=== PATIENT | female | born 1985 | race Caucasian/White ===

== ENCOUNTER → 2019-04-25 16:14 | Outpatient (CLI) | payer OTHER, SELFPAY ==
--- NOTE | 2019-04-25 | DI.US.S_ITS ---
PROCEDURE: US OB <= 14 WEEKS FETUS INDICATIONS: SIZE AND DATING OUTSIDE/PRIOR DATING DATA: Last menstrual period (LMP): 03/04/2019. LMP-based estimated date of delivery ([place]): 12/09/2019. First dating scan (date and location): 04/25/2019. Estimated date of delivery ([place]) from first dating scan: 12/08/2019. TECHNIQUE: Real-time scanning was performed of the fetus and maternal pelvic organs, with image documentation. Endovaginal scanning was also performed to better visualize the fetus and maternal ovaries. COMPARISON: None. FINDINGS: Embryo: Uterus measures 11.8 x 5.8 x 7 cm. There is an intrauterine gestational sac centered in the uterus. A normal-appearing crown-rump length measures 1.3 cm with an estimated gestational age of 7 weeks 4/7 days. A yolk sac is present. A heartbeat measures 153 bpm. Measurement variability in dating: +/- 4 weeks by LMP, +/- 7 days by mean sac diameter (use before 6 weeks gestation if crown-rump length not able to be measured), +/- 5 days by crown-rump length (up to 8 weeks 6 days gestation), +/- 7 days by crown-rump length (up to 13 weeks 6 days gestation). Maternal organs: Ovaries are not well seen. IMPRESSION: 1. Aldrich living intrauterine at 7 weeks 4/7 days based on today's CRL. heartbeat is present. 2. Maternal ovaries are not well seen. Dictated by: Poncho Elizalde M.D. on 04/25/2019 at 17:54 Approved by: Poncho Elizalde M.D. on 04/25/2019 at 17:58
== END ==
PROVIDERS: PCP Family Medicine; Visit Provider Family Medicine
DX: Z34.91 Encounter for supervision of normal pregnancy, unspecified, first trimester (principal); Z3A.01 Less than 8 weeks gestation of pregnancy
CPT/HCPCS: 76801

== ENCOUNTER → 2019-07-20 15:35 | Outpatient (CLI) | payer OTHER, SELFPAY ==
--- NOTE | 2019-07-20 | DI.US.S_ITS ---
PROCEDURE: US OB >= 14 WEEKS FETUS INDICATIONS: ANATOMY SCAN OUTSIDE/PRIOR DATING DATA: Last menstrual period (LMP): 03/04/2019. LMP-based estimated date of delivery ([place]): 12/09/2019. First dating scan (date and location): 04/25/2019. Estimated date of delivery ([place]) from first dating scan: 12/08/2019 TECHNIQUE: Real-time scanning was performed of the fetus, with image documentation and biometric measurements. COMPARISON: [facility], OB <= 14 WEEKS FETUS, 04/25/2019, 16:31. FINDINGS: General: A single living intrauterine gestation is present. Presentation: Vertex Placenta: Placental position is posterior, without previa. Amniotic fluid index: 13.4 cm, normal range is 5-24 cm. heart rate: 157 beats per minute. Maternal cervical canal: 3.4 cm long. Normal lower limit is 2.5 cm. biometrics: Biparietal diameter: 20 weeks 4 days Head circumference: 19 weeks 6 days Abdominal circumference: 20 weeks 1 day Femur length: 19 weeks 5 days Estimated gestational age from initial scan: 19 weeks 6 days Composite gestational age from present scan: 20 weeks 1 day Estimated weight and percentile: 321 g; 49 percentile Measurement variability for biometric dating: +/- 7 days from 14 weeks to 15 weeks 6 days gestation, +/- 10 days from 16 weeks to 21 weeks 6 days gestation, +/- 2 weeks from 22 weeks to 27 weeks 6 days gestation, +/- 3 weeks for 28 weeks gestation or later. weight reference: 4500 g or EFW >90/95% is considered macrosomia or large for gestational age. EFW <10% is small for gestational age. EFW 5% or less is considered intra-uterine growth restriction. Anatomic survey: Neuro: Ventricles are non-dilated at less than 10 mm. Cisterna magna is normal at 3-11 mm. Cerebellum is normal in size and morphology. Nuchal skin fold: Normal at less than 6 mm between 14-21 weeks gestational age. Face: Nose and lips, facial profile are normal. Spine: No evidence for spina bifida. Heart: 4-chambered heart is present, with normal ventricular outflow tracts. Diaphragm: Diaphragm is intact. Stomach: Left-sided stomach is present. Kidneys: No hydronephrosis. Normal is less than 5 mm in 2nd trimester, less than 7 mm in 3rd trimester. Cord: 3-vessel cord has orthotopic insertion. Bladder: Normal in size. Extremities: All 4 extremities identified. IMPRESSION: 1. Aldrich living intrauterine at 20 weeks 1/7 days based on today's ultrasound. This is concordant with the external assessment. There is expected interval growth. 2. Normal placenta and amniotic fluid. 3. Normal and complete anatomic survey. Dictated by: Refugio MCDERMOTT Interpreted: Poncho Elizalde MD on 07/20/2019 at 16:44 Approved by: Poncho Elizalde M.D. on 07/20/2019 at 17:22
== END ==
PROVIDERS: PCP Family Medicine; Visit Provider Family Medicine
DX: Z36.89 Encounter for other specified antenatal screening (principal); Z3A.20 20 weeks gestation of pregnancy
CPT/HCPCS: 76811

== ENCOUNTER → 2019-10-31 15:46 | Outpatient (CLI) | payer OTHER, SELFPAY ==
--- NOTE | 2019-10-31 | DI.US.S_ITS ---
PROCEDURE: US OB FOLLOW UP INDICATIONS: SIZE LESS THAN DATES OUTSIDE/PRIOR DATING DATA: Last menstrual period (LMP): 03/04/2019 LMP-based estimated date of delivery ([place]): 12/09/2019. First dating scan (date and location): 04/25/2019, [facility]. Estimated date of delivery ([place]) from first dating scan: 12/08/2019. TECHNIQUE: Real-time scanning was performed of the fetus, with image documentation and biometric measurements. Endovaginal scanning: Not performed COMPARISON: [facility], , OB >= 14 WEEKS FETUS, 07/20/2019, 15:49. FINDINGS: General: A single living intrauterine gestation is present. Presentation: Vertex. Placenta: Placental position is posterior fundal, without previa. Amniotic fluid index: 11.3 cm, normal range is 5-24 cm. heart rate: 145 beats per minute. Maternal cervical canal: 3.1 cm long. Normal lower limit is 2.5 cm. biometrics: Biparietal diameter: 8.8 cm. 35 weeks 5 days. Head circumference: 31.5 cm. 35 weeks 3 days. Abdominal circumference: 29.5 cm. 33 weeks 3 days. Femur length: 6.8 cm. 35 weeks 0 days. Estimated gestational age from initial scan: 34 weeks 4 days Composite gestational age from present scan: 34 weeks 4 days Estimated weight and percentile: 2400 g, 37th percentile. Measurement variability for biometric dating: +/- 7 days from 14 weeks to 15 weeks 6 days gestation, +/- 10 days from 16 weeks to 21 weeks 6 days gestation, +/- 2 weeks from 22 weeks to 27 weeks 6 days gestation, +/- 3 weeks for 28 weeks gestation or later. weight reference: 4500 g or EFW >90/95% is considered macrosomia or large for gestational age. EFW <10% is small for gestational age. EFW 5% or less is considered intra-uterine growth restriction. Other: Heart, chest, urinary bladder are grossly unremarkable. IMPRESSION: 1. Aldrich living intrauterine at 34 weeks 4/7 days based on today's ultrasound. This is concordant with the prior ultrasound. There is interval growth. Estimated weight 37th percentile. 2. Normal placenta and amniotic fluid. Dictated by: Poncho Elizalde M.D. on 10/31/2019 at 17:10 Approved by: Poncho Elizalde M.D. on 10/31/2019 at 17:16
== END ==
PROVIDERS: PCP Family Medicine; Referring Provider Family Medicine; Visit Provider Family Medicine
DX: Z36.4 Encounter for antenatal screening for fetal growth retardation (principal); Z3A.34 34 weeks gestation of pregnancy
CPT/HCPCS: 76816

== ENCOUNTER → 2019-11-10 11:30 | Outpatient (ROUT) | payer OTHER, SELFPAY | PROVIDERS: PCP Family Medicine; Visit Provider Family Medicine | DX: Z34.90 Encounter for supervision of normal pregnancy, unspecified, unspecified trimester (principal) | CPT/HCPCS: 87081 ==

== ENCOUNTER → 2019-11-25 14:10 | Outpatient (CLI) | payer OTHER, SELFPAY ==
--- NOTE | 2019-11-25 | DI.US.S_ITS ---
PROCEDURE: US OB LIMITED INDICATIONS: SIZE LESS THAN DATES OUTSIDE/PRIOR DATING DATA: Last menstrual period (LMP): 03/04/19. LMP-based estimated date of delivery ([place]): 12/09/19. First dating scan (date and location): 04/25/19. Estimated date of delivery ([place]) from first dating scan: 12/08/19. TECHNIQUE: Real-time scanning was performed of the fetus, with image documentation and biometric measurements. Endovaginal scanning: Not needed COMPARISON: [facility], 01/09/2017, 17:09. [facility], 12/08/2016, 16:28. FINDINGS: General: A single living intrauterine gestation is present. Presentation: Cephalic. biometrics: Biparietal diameter: 9.3 cm, 38 weeks 0 days Head circumference: 33.0 cm, 37 weeks 5 days Abdominal circumference: 34 cm, 37 weeks 3 days Femur length: 6.8 cm, 36 weeks 0 days Estimated gestational age from initial scan: 38 weeks 1 day Composite gestational age from present scan: 37 weeks 0 days Estimated weight and percentile: 3073 g, 32nd percentile Measurement variability for biometric dating: +/- 7 days from 14 weeks to 15 weeks 6 days gestation, +/- 10 days from 16 weeks to 21 weeks 6 days gestation, +/- 2 weeks from 22 weeks to 27 weeks 6 days gestation, +/- 3 weeks for 28 weeks gestation or later. weight reference: 4500 g or EFW >90/95% is considered macrosomia or large for gestational age. EFW <10% is small for gestational age. EFW 5% or less is considered intra-uterine growth restriction. Other: Not applicable. IMPRESSION: Appropriate interval growth, no anomaly found. Delivery date is projected to be centered on 12/08/19. Dictated by: Serge Wylie M.D. on 11/25/2019 at 16:18 Approved by: Serge Wylie M.D. on 11/25/2019 at 16:22
== END ==
PROVIDERS: PCP Family Medicine; Referring Provider Family Medicine; Visit Provider Family Medicine
DX: Z36.4 Encounter for antenatal screening for fetal growth retardation (principal); Z3A.37 37 weeks gestation of pregnancy
CPT/HCPCS: 76815

== ENCOUNTER 2019-12-12 21:41 | Inpatient (IN) | payer OTHER, SELFPAY ==
[2019-12-12 23:18] LABS: Add Manual Diff / Slide Review NO; Basophils Absolute Auto 0 /uL (0-100); Basophils Percent Auto 0.3 % (0-2); Eosinophils Absolute Auto 0 /uL (0-450); Eosinophils Percent Auto 0.3 % (2-4); Hematocrit 39.3 % (36-46); Hemoglobin 13.3 g/dL (12.0-16.0); Lymphocytes Absolute Auto 3900 /uL (1100-4500); Lymphocytes Percent Auto 33.7 % (25-40); Mean Corpuscular HGB Conc 33.8 % (30-36); Mean Corpuscular Volume 91.8 fL (80-100); Monocytes Absolute Auto 1100 /uL (0-900); Monocytes Percent Auto 9.4 % (3-14); Neutrophils Absolute Auto 6500 /uL (1500-7000); Neutrophils Percent Auto 56.3 % (50-75); Platelet Count 256 X10^3/uL (150-400); Red Blood Cell Count 4.28 X10^6/uL (4.0-5.2); Red Cell Distribution Width 13.9 % (11.6-14.8); White Blood Cell Count 11.5 X10^3/uL (4.5-11.0)
[2019-12-12 23:38] VITALS: BP 129/88
--- NOTE | 2019-12-13 01:07 | P.PCNOB_ITS ---
Labor & Delivery Delivery date: 12/13/19 Intrapartal events: None Cervical ripening method: none Induction method: none Delivery augmentation: rupture of membranes Delivery monitor: external FHT and external uterine Route of delivery: Episiotomy description: None L&D Laceration Description: Perineal - 2nd Degree Delivery repair: chromic Estimated blood loss (mL): 350 Anesthesia type: None Complications: none Narrative: Identifying data this is a 34-year-old who is 40 and 4 7th weeks estimated gestational age based on LMP and 7 week ultrasound which gives an EDC of 12/09/2019. Patient had an unremarkable and presented to labor and delivery in active labor. Her labor started at 5:00 p.m. on the day of admission. She is GBS negative, she declined flu shot but had a Tdap. She is O-positive, rubella immune. Her glucose tolerance test was normal. Stage I lasted 6 hours and 55 minutes Patient presented to labor and delivery in active labor and was found to be 6 cm dilated.. Her contractions started 1700 on the date of delivery. They increased in frequency and were quite significant every 3-5 minutes when she arrived to Labor and delivery. She did have bloody show and lost her mucus plug yesterday but did not have any leakage of fluid. She was handling the contractions very well and was progressing fairly quickly. She started involuntarily pushing at about 12/15/2048 and artificial rupture membranes was performed at this time but we were unable to assess the fluid. There was no large amount of mucus bloody show at that time but no obvious fluid. Patient was noted to be complete at 11:55 p.m.. External heart monitor was used throughout this stage and baseline was in the 140s with accelerations to 170s and moderate variability and occasional variable deceleration. These were very brief. Overall category 1 tracing. Patient had some coupling. But as she progressed to complete contractions became more regular at 3 minutes apart. Patient at 1 point said she might 1 epidural but then decided against this and handled to the Pain excellently. Stage II lasted 21 minutes Patient was able to put on hands and knees and did an excellent job. Baby was and patient was placed on her side. The patient was allows stretching of the perineum with the head as the head was . The head was delivered occiput anterior right. Once the head was delivered patient stop pushing and no cord was noted. The anterior shoulder and in the posterior shoulder were easily delivered and baby was placed on mom's chest. Baby was vigorous at delivery. Apgars were 9 at 1 minute and 9 at 5 minutes. Weight is still pending. External tocometer heart monitor were used throughout this stage. Baseline heart rate was in the 140s with moderate variability with accelerations at times with pushing occasional variable deceleration occasional rise in heart rate to 170s but then quickly would return to 140s. Overall reassuring strip c ategory 1 tracing. Stage III lasted 8 minutes Normal spontaneous vaginal delivery of an intact mildly calcified placenta with a central cord insertion. Three-vessel cord. 350 cc of blood loss. Ten milliunits of Pitocin was given at the time of delivery of the placenta. The was a very superficial periurethral laceration and a very a small mild second- degree perineal laceration. At the time of this dictation both mom and baby are in stable condition. Plan for aftercare: routine clear fluid likely GBS negative O positive
--- NOTE | 2019-12-13 01:21 | PM.OBHP.1 ---
OB HPI History of Present Condition Chief complaint: Narrative: Caroline Stallworth is a 34 year old female who presents to Labor and delivery with complaints of spontaneous onset of uterine contractions. She is a at 40 and 4 7 weeks estimated gestational age based on the EDC of 12/09/2019 based on a 7 week ultrasound and a known LMP. She had an unremarkable . She lost her mucus plug yesterday and has had some bloody show today. Her contractions started at 5:00 p.m. on the date of admission been progressively increased. She denies leakage of fluid. She was found to be 6 cm dilated on presentation. care begun early on and uncomplicated Sequential screen and cell free DNA normal Blood pressure was stable 100-110 over 60 to 70s. Weight gain of 25 lb. Serology O positive rubella immune antibody screen negative. Syphilis hep B hep C negative no anemia. Glucose tolerance test 124 status post Tdap. Declined flu shot. GC chlamydia negative group B beta strep negative Past medical history: 1. 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 Gluten sensitivity 3. Food allergies Number for urticaria 5. Mild intermittent asthma Medications: vitamins Allergies: Hydrocodone causes hives and nausea Past surgical history: Unremarkable Healthy to behavior: She does not smoke or use alcohol or use recreational drugs Past OB history: 1. 01/22/2017 at 40 weeks gestation Normal spontaneous vaginal delivery, [facility], no epidural, male weighing 6 lb 15 oz named 0 in Evaluation Evaluation Laboratory results: Laboratory Tests 12/12/19 12/12/19 23:05 23:05 WBC 11.5 H RBC 4.28 Hgb 13.3 Hct 39.3 MCV 91.8 MCH 31.0 MCHC 33.8 RDW 13.9 Plt Count 256 Neut % (Auto) 56.3 Lymph % (Auto) 33.7 [place] % (Auto) 9.4 Eos % (Auto) 0.3 L Baso % (Auto) 0.3 Neut # (Auto) 6500 Lymph # (Auto) 3900 [place] # (Auto) 1100 H Eos # (Auto) 0 Baso # (Auto) 0 Blood Type O Positive Antibody Screen Negative [facility] Social History Smoking Status: Never smoker Meds Home Medications and Allergies Home Medications Medication Instructions Recorded Confirmed Type No Known Home Medications 12/12/19 12/12/19 History 1 tab PO DAILY 12/12/19 12/12/19 History Allergies Allergy/AdvReac Type Severity Reaction Status Date / Time hydrocodone [From VICODIN] Allergy Mild HIVES/NAUSE Verified 12/13/19 01:23 A Review of Systems Review of Systems Narrative: No headaches, no swelling, baby has been active. No leakage of fluid. No urine symptoms ROS: Yes All systems reviewed with the patient and are negative except as otherwise documented Exam Vital Signs (past 8 hours): - 12/12/19 23:38 Blood Pressure 129/88 Narrative Exam Narrative: Afebrile vital signs are stable HEENT is unremarkable Neck is supple without masses Chest: Clear to auscultation without wheezes rhonchi or crackles Cor: Regular rate and rhythm without any murmur Abdomen: Gravid, vertex with estimated weight approximately 7 lb. Extremities no edema. 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 DTRs intact Cervical exam 6-7 cm 90% effaced, 0 station Uterine contractions some coupling and contractions every 3-5 minutes heart tones baseline 140s with accelerations and no decelerations and moderate variability Objective Labs Result Diagrams: 12/12/19 23:05 Labs: Laboratory Results - last 24 hr 12/12/19 12/12/19 23:05 23:05 WBC 11.5 H RBC 4.28 Hgb 13.3 Hct 39.3 MCV 91.8 MCH 31.0 MCHC 33.8 RDW 13.9 Plt Count 256 Neut % (Auto) 56.3 Lymph % (Auto) 33.7 [place] % (Auto) 9.4 Eos % (Auto) 0.3 L Baso % (Auto) 0.3 Neut # (Auto) 6500 Lymph # (Auto) 3900 [place] # (Auto) 1100 H Eos # (Auto) 0 Baso # (Auto) 0 Blood Type O Positive Antibody Screen Negative Assessment and Plan Assessment and Plan Assessment and Plan narrative: 34-year-old at 40 and 4 7th weeks estimated gestational age in active labor Plan expectant management O-positive, rubella immune, status post Tdap Declined flu shot Sequential screen negative GBS negative Glucose tolerance test 124 Routine care supportive care. Expectant management
[2019-12-13] MEDS: ACETAMINOPHEN 325 MG TABLET 650 MG PO (01:39)
[2019-12-13] MEDS: IBUPROFEN 600 MG TABLET PO ×4 (01:39→20:30)
[2019-12-13] MEDS: DERMOPLAST SPRAY 20% 60 ML 1 SPRAY TOP (01:40)
[2019-12-13] MEDS: OXYTOCIN 10 UNIT/ML VIAL 20 UNIT (01:42)
[2019-12-13] MEDS: DOCUSATE 100 MG CAPSULE PO (07:55)
--- NOTE | 2019-12-13 13:48 | P.DS_ITS ---
History of Present Illness History of Present Illness Chief complaint: LABOR & DELIVERY Discharge Providers Provider Date of admission: 12/12/19 21:41 Discharge Date: 12/13/19 Primary care physician: Celi Bolden MD Consults: 12/14/19 01:04 Consult to Automatic Wheel Line [employer] Routine Comment: Discharge provider: Celi Bolden MD Summary Hospital Course Discharge Diagnosis: Term , uncomplicated Normal spontaneous vaginal delivery uncomplicated Hospital Course: Patient admitted to the hospital in active labor. She rapidly progressed and delivered within 3 hours of arriving to the hospital. She had a normal spontaneous vaginal delivery. There was no obvious meconium but is difficult to assess the fluid. She is GBS negative and O positive. She had 350 cc of blood loss. There were no ill problems with recovery and no complications and lochia was normal and decreasing and pain was well controlled with ibuprofen and patient was sent home on day 1. In stable condition Status at Discharge Cognitive/behavioral status at discharge: oriented Functional status at discharge: independent ambulation Overall status at discharge: patient is progressing back to baseline Time Spent with Patient Time spent: Less than 30 minutes Exam Vital Signs (past 8 hours): Afebrile vital signs are stable Alert and oriented no apparent distress HEENT unremarkable Neck: Supple Chest: Clear to auscultation without wheezes rhonchi or crackles Cor: Regular rate and rhythm without murmur Abdomen: Positive bowel sounds, soft, nontender, nondistended, uterus is firm and nontender and well below the umbilicus Extremities: No edema, DTRs intact Objective Labs Result Diagrams: 12/12/19 23:05 Labs: Laboratory Results - last 24 hr 12/12/19 12/12/19 23:05 23:05 WBC 11.5 H RBC 4.28 Hgb 13.3 Hct 39.3 MCV 91.8 MCH 31.0 MCHC 33.8 RDW 13.9 Plt Count 256 Neut % (Auto) 56.3 Lymph % (Auto) 33.7 [place] % (Auto) 9.4 Eos % (Auto) 0.3 L Baso % (Auto) 0.3 Neut # (Auto) 6500 Lymph # (Auto) 3900 [place] # (Auto) 1100 H Eos # (Auto) 0 Baso # (Auto) 0 Blood Type O Positive Antibody Screen Negative Discharge Plan Discharge Plan Patient Disposition: Home Discharge orders & Medications Prescriptions: Continued 1 tab tablet 1 tab PO DAILY RF: 0 No Action No Known Home Medications RF: 0 Follow up/Referrals: Celi Bolden MD [Primary Care Provider] - Diet/Activity/Treatments Diet: Diet as Tolerated Activity: Pelvic rest, no heavy lifting Discharge Data Primary Care Provider: Celi Bolden
[2019-12-13 19:34] VITALS: BP 112/76; PULSE 66; RESP 16; TEMP 37.1
== END 2019-12-13 20:48 | disposition home or self-care (01) | DRG 807 ==
PROVIDERS: Admitting Provider Family Medicine; PCP Family Medicine; Referring Provider Family Medicine; Visit Provider Family Medicine
DX: O70.1 Second degree perineal laceration during delivery (principal); Z37.0 Single live birth; Z3A.40 40 weeks gestation of pregnancy
CPT/HCPCS: 36415; 59050; 85025; 86850; 86900; 86901; G0379; J2590

== ENCOUNTER → 2023-02-18 08:54 | Outpatient (CLI) | payer OTHER, SELFPAY ==
--- NOTE | 2023-02-18 08:57 | DI.US.S_ITS ---
PROCEDURE: US ABDOMEN COMPLETE INDICATIONS: ABDOMINAL PAIN TECHNIQUE: Real-time scanning was performed of the abdominal and retroperitoneal organs, with image documentation. COMPARISON: [facility], US, ABDOMEN COMPLETE, 11/15/2008, 13:06. FINDINGS: Liver: Liver is normal in size and homogeneous in echotexture. Gallbladder: The gallbladder is normal without stones, sludge, wall thickening, or pericholecystic fluid. Biliary ducts: Intrahepatic bile ducts are non-dilated. Extrahepatic bile duct caliber measures 3.4 mm. Normal is 6-7 mm or less in diameter, or 10 mm or less post-cholecystectomy. Pancreas: Visualized portions of the pancreas are sonographically normal. Spleen: Spleen is normal in size and homogeneous in echotexture. Kidneys: Kidneys are normal in size and echotexture. Right kidney measures 11.8 cm long; left kidney measures 11.1 cm long. No hydronephrosis or nephrolithiasis. No solid masses. Aorta: Visualized aorta is normal in caliber at less than 3 cm. Iliacs: Proximal common iliac arteries are normal in caliber at less than 2.5 cm. IVC: Intrahepatic inferior vena cava is patent. Miscellaneous: No free abdominal fluid. IMPRESSION: 1. Normal abdominal ultrasound. Dictated by: Prema Salazar M.D. on 02/18/2023 at 14:46 Approved by: Prema Salazar M.D. on 02/18/2023 at 14:47
== END ==
PROVIDERS: Referring Provider Naturopath; Visit Provider Naturopath
DX: R10.9 Unspecified abdominal pain (principal)
CPT/HCPCS: 76700